=== PATIENT | female | born 1975 | race Two or more races ===

== ENCOUNTER 2024-03-18 09:24 | Emergency (ER) | payer SELFPAY ==
[2024-03-18 09:27] VITALS: BP 121/60; PULSE 78; TEMP 36.7; O2SAT 98; BMI 28.3
[2024-03-18] MEDS: IBUPROFEN 400 MG TABLET 800 MG PO (09:44)
[2024-03-18] MEDS: DEXAMETHASONE SOD PHOS 10 MG/ML VIAL PO (09:45)
--- NOTE | 2024-03-18 13:22 | ED_ITS ---
HPI HPI - General Adult General Chief complaint: Upper Respiratory Infection Stated complaint: SORE THROAT Time Seen by Provider: 03/18/24 09:26 Source: patient Mode of arrival: walk-in History of Present Illness HPI narrative: 48-year-old female to the emergency department with chief complaint of sore throat, cough, nasal congestion. Symptoms started over the last 48 hours. She is in town visiting some family. She denies any chest pain or shortness of breath. She was hoping for some medications to help her symptoms.She is otherwise at her baseline health. Has no major medical problems. Denies . Related Data Previous Rx's ?Medication ?Instructions ?Recorded ntgikbdvsdihbom-ogacvyvfwdffwrp-SH 5 ml PO Q4H PRN cold symptoms #118 03/18/24 2 mg-30 mg-10 mg/5 mL oral syrup mL (Bromfed DM) Allergies Allergy/AdvReac Type Severity Reaction Status Date / Time No Known Drug Allergies Allergy Verified 03/18/24 09:28 Opioid HPI Opioid Management Most Recent Opioid Data: Last Pain Scale 8 03/18/24 09:44 Last MAR Pain Assessment 03/18/24 09:44 Review of Systems ROS Status of ROS 10 or more systems reviewed and unremark able except as noted in history and below Exam Narrative Exam Narrative: VITALS: I have reviewed the triage vital signs. GENERAL: Well developed, well appearing adult in no acute distress. NEURO: Alert and oriented. Moves all extremities. Face is symmetric and expressive. EYES: PERRL. No scleral icterus or conjunctival injection. No discharge. HENT: Normocephalic, atraumatic. Hearing is grossly intact. Mild nasal congestion with clear discharge. Mucous membranes moist. Uvula midline. No unilateral peritonsillar swelling. NECK: No JVD. Patient moves neck without restriction. CARDIO: Rhythm regular. Normal rate. No murmur, rub, or gallop. Pulses equal bilaterally in the upper and lower extremity. No lower extremity edema. PULM: Lungs clear to auscultation in all nuñez. No wheezes, rales, or rhonchi. No conversational dyspnea. No splinting, stridor, or accessory muscle use. GI/: Abdomen is soft and non-tender. Normoactive bowel sounds. EXTREMITIES: Symmetric muscle bulk. No joint swelling. No clubbing, cyanosis, or deformity. SKIN: Warm and dry. Normal turgor. No rash or lesions appreciated. PSYCH: Mood, affect, and interaction is appropriate to the setting. Constitutional Vital Signs, click to edit/add: Last Vital Signs Temp 98.1 F 03/18/24 09:27 Pulse 78 03/18/24 09:27 Resp 16 03/18/24 09:27 BP 121/60 03/18/24 09:27 Pulse Ox 98 03/18/24 09:27 O2 Del Method Room Air 03/18/24 09:27 Course Vital Signs Vital signs: Vital Signs Temperature 98.1 F 03/18/24 09:27 Pulse Rate 78 03/18/24 09:27 Respiratory Rate 16 03/18/24 09:27 Blood Pressure 121/60 03/18/24 09:27 Pulse Oximetry 98 03/18/24 09:27 Oxygen Delivery Method Room Air 03/18/24 09:27 Temperature 98.1 F 03/18/24 09:27 Pulse Rate 78 03/18/24 09:27 Respiratory Rate 16 03/18/24 09:27 Blood Pressure 121/60 03/18/24 09:27 Pulse Oximetry 98 03/18/24 09:27 Oxygen Delivery Method Room Air 03/18/24 09:27 Medical Decision Making MDM Narrative Medical decision making narrative: Well-appearing 48-year-old female to the emergency department for URI symptoms. Uvula is midline, there is no deviation suggesting a peritonsillar abscess. She has mild nasal discharge. Discussed management of URI. Ibuprofen for symptoms. Bromfed and dexame thasone. Return precautions were discussed. All questions were answered. The patient was discharged home. [facility] DATA #65: Appropriate Treatment for Patients with URI [x] The patient was diagnosed with upper respiratory infection and was not prescribed or dispensed an antibiotic. [[employer]] Discharge Plan Discharge Stand Alone Forms: Portal Instructions Chief Complaint: Upper Respiratory Infection Clinical Impression: Upper respiratory infection Patient Disposition: Home, Self-Care Time of Disposition Decision: 09:38 Condition: Good Mode of Transportation: Private Vehicle Prescriptions / Home Meds: New nqmjgpvhumsehfy-cqxpwgkbo-IU [Bromfed DM] 2-30-10 mg/5 mL syrup 5 ml PO Q4H PRN (Reason: cold symptoms) Qty: 118 0RF Print Language: Polish Instructions: Upper Respiratory Infection (ED) Additional Instructions: Call the office of your primary care doctor to arrange for follow-up within the above-stated timeframe. Your ED visit was focused on your acute issue and does not replace primary care. You should review your labs, imaging, and diagnoses from this ED visit with your primary care physician. There may be non-emergent/ incidental findings that need further evaluation. You should review your vital signs including blood pressure with your PCP. If you were prescribed medications you should discuss possible side-effects and drug interactions with your pharmacist. Call 911 or go to the nearest Emergency Department if you develop any new or worsening symptoms. Follow-up with your doctor when you return home. Discharge Date/Time: 03/18/24 09:46
== END 2024-03-18 09:46 | disposition home or self-care (01) ==
LOC: ER 10:04
PROVIDERS: Emergency Provider Student in an Organized Health Care Education/Training Program
DX: J06.9 Acute upper respiratory infection, unspecified (principal)
CPT/HCPCS: 99283; J1100